=== PATIENT | female | born 1985 | race Caucasian/White ===

== ENCOUNTER 2020-04-08 19:59 | Emergency (ER) | payer BC ==
[~2020-04-08 19:59] MED LIST: COLACE 100MG C100 MG PO; ULTRAM50 MG PO
[2020-04-08 23:13] LABS: HEMOGLOBIN 15.1 gm/dl (12.3-15.3); RED BLOOD COUNT 4.88 M/UL (4.00-5.10); WHITE BLOOD COUNT 8.7 K/UL (4.5-11.0)
[2020-04-09 00:02] LABS: BUN/CREATININE RATIO 30 (0-10)
[2020-04-09] MEDS ORDERED: KLOR-CON M2020 MEQ PO (00:40)
== END 2020-04-09 02:10 | disposition home or self-care (01) ==
LOC: ER1 19:59
PROVIDERS: Physician Assistant
DX: M79.602 Pain in left arm (principal); M79.601 Pain in right arm; R07.89 Other chest pain; E86.0 Dehydration; E87.6 Hypokalemia; E11.9 Type 2 diabetes mellitus without complications; I10 Essential (primary) hypertension; Z86.16 Personal history of COVID-19
CPT/HCPCS: 71045; 80053; 81001; 82150; 82550; 82553; 83690; 83874; 84484; 84703; 85025; 85379; 93005; 96365; 99284; J3480